=== PATIENT | male | born 1975 | race Caucasian/White ===

== ENCOUNTER 2022-05-15 17:55 | Emergency (ER) | payer SELFPAY ==
[2022-05-15 19:12] VITALS: RESP 20; TEMP 97.6
--- NOTE | 2022-05-15 20:28 | ED ---
General Adult HPI - General Chief complaint: Extremity Problem,Nontraumatic Stated complaint: Left elbow swelling Time Seen by Provider: 05/15/22 20:01 Source: patient, RN notes reviewed Mode of arrival: ambulatory Limitations: no limitations - History of Present Illness Initial comments: Patient is a pleasant 47-year-old male presenting to the emergency department with left forearm swelling. Onset of symptoms was close to week ago. Symptoms worsen last couple of days. Patient does have some discomfort near the elbow region. Discomfort does increase with touch. No pain with movement at the elbow or wrist. No fever. No history of similar symptoms previously. Patient does frequently get scratches secondary to the work he does. - Related Data Previous Rx's Medication Instructions Recorded Cephalexin [Keflex] 500 mg PO QID #40 cap 05/15/22 Allergies Allergy/AdvReac Type Severity Reaction Status Date / Time No Known Allergies Allergy Verified 05/15/22 19:12 Review of Systems ROS Statement: Those systems with pertinent positive or pertinent negative responses have been documented in the HPI. ROS Other: All systems not noted in ROS Statement are negative. Constitutional: Denies: fever Eyes: Denies: eye pain ENT: Denies: ear pain Respiratory: Denies: cough Cardiovascular: Denies: chest pain Endocrine: Denies: fatigue Gastrointestinal: Denies: abdominal pain Genitourinary: Denies: dysuria Musculoskeletal: Denies: back pain Skin: Reports: as per HPI Neurological: Denies: weakness Past Medical History Past Medical History: No Reported History History of Any Multi-Drug Resistant Organisms: None Reported Past Surgical History: No Surgical Hx Reported Past Psychological History: No Psychological Hx Reported Smoking Status: Current every day smoker Past Alcohol Use History: None Reported Past Drug Use History: Marijuana General Exam Limitations: no limitations General appearance: alert, in no apparent distress Head exam: Present: normocephalic Eye exam: Present: normal appearance Respiratory exam: Present: normal lung sounds bilaterally Cardiovascular Exam: Present: regular rate, normal rhythm Extremities exam: Present: full ROM, tenderness (Left ulnar side proximal forearm with mild swelling and tenderness. There is trace erythema.), other (Distally the extremity is neurovascular intact. No swelling or tenderness at the elbow itself.) Neurological exam: Present: alert. Absent: motor sensory deficit Psychiatric exam: Present: normal affect, depressed Skin exam: Present: erythema (Trace left forearm) Course Vital Signs 05/15/22 19:09 Temperature 97.6 F Pulse Rate 89 Respiratory 20 Rate Blood Pressure 138/91 O2 Sat by Pulse 99 Oximetry Medical Decision Making - Medical Decision Making Patient reevaluated and updated. - Lab Data Result diagrams: 05/15/22 18:19 05/15/22 18:19 Lab Results 05/15/22 05/15/22 05/15/22 Range/Units 18:19 18:19 18:19 WBC 8.7 (3.8-10.6) k/uL RBC 5.24 (4.30-5.90) m/uL Hgb 15.5 (13.0-17.5) gm/dL Hct 47.3 (39.0-53.0) % MCV 90.3 (80.0-100.0) fL MCH 29.6 (25.0-35.0) pg MCHC 32.8 (31.0-37.0) g/dL RDW 12.5 (11.5-15.5) % Plt Count 277 (150-450) k/uL MPV 7.2 Neutrophils % 68 % Lymphocytes % 19 % Monocytes % 9 % Eosinophils % 2 % Basophils % 1 % Neutrophils # 6.0 (1.3-7.7) k/uL Lymphocytes # 1.6 (1.0-4.8) k/uL Monocytes # 0.8 (0-1.0) k/uL Eosinophils # 0.1 (0-0.7) k/uL Basophils # 0.1 (0-0.2) k/uL Sodium 139 (137-145) mmol/L Potassium 4.0 (3.5-5.1) mmol/L Chloride 100 (98-107) mmol/L Carbon Dioxide 29 (22-30) mmol/L Anion Gap 10 mmol/L BUN 18 (9-20) mg/dL Creatinine 0.99 (0.66-1.25) mg/dL Est GFR (CKD-EPI)AfAm >90 (>60 ml/min/1.73 sqM) Est GFR (CKD-EPI)NonAf 90 (>60 ml/min/1.73 sqM) Glucose 80 (74-99) mg/dL Plasma Lactic Acid Gonzalo 1.1 (0.7-2.0) mmol/L Calcium 9.4 (8.4-10.2) mg/dL Total Bilirubin 0.9 (0.2-1.3) mg/dL AST 28 (17-59) U/L ALT 14 (4-49) U/L Alkaline Phosphatase 62 (38-126) U/L C-Reactive Protein 1.6 H (<1.0) mg/dL Total Protein 7.2 (6.3-8.2) g/dL Albumin 4.8 (3.5-5.0) g/dL - Radiology Data Radiology results: report reviewed (Ultrasound negative for thrombosis), image reviewed (X-ray shows soft tissue swelling otherwise no acute process) Disposition Clinical Impression: Cellulitis Disposition: HOME SELF-CARE Condition: Stable Instructions (If sedation given, give patient instructions): Cellulitis (ED) Additional Instructions: Prescription sent to pharmacy. Please follow-up with primary care physician in the next couple days for recheck. Return for fever, redness, increased pain, increased swelling, worsening symptoms or any other concerns. Prescriptions: Cephalexin [Keflex] 500 mg PO QID #40 cap Is patient prescribed a controlled substance at d/c from ED?: No Referrals: Artemio Trujillo MD [STAFF PHYSICIAN] - 1-2 days Time of Disposition: 22:15
[2022-05-15 20:34] LABS: Basophils # (A) 0.1 k/uL (0-0.2); Basophils % (A) 1 %; Eosinophils # (A) 0.1 k/uL (0-0.7); Eosinophils % (A) 2 %; HCT 47.3 % (39.0-53.0); HGB 15.5 gm/dL (13.0-17.5); Lymphocytes # (A) 1.6 k/uL (1.0-4.8); Lymphocytes % (A) 19 %; MCH 29.6 pg (25.0-35.0); MCHC 32.8 g/dL (31.0-37.0); MCV 90.3 fL (80.0-100.0); Mean Platelet Volume 7.2; Monocytes # (A) 0.8 k/uL (0-1.0); Monocytes % (A) 9 %; Neutrophils % (A) 68 %; Platelet Count 277 k/uL (150-450); RBC 5.24 m/uL (4.30-5.90); RDW 12.5 % (11.5-15.5); WBC 8.7 k/uL (3.8-10.6)
[2022-05-15 20:49] LABS: ALT 14 U/L (4-49); AST 28 U/L (17-59); African American GFR (CKD) >90 (>60 ml/min/1.73 sqM); Albumin 4.8 g/dL (3.5-5.0); Alkaline Phosphatase 62 U/L (38-126); Anion Gap 10 mmol/L; Blood Urea Nitrogen 18 mg/dL (9-20); C Reactive Protein 1.6 mg/dL (<1.0); Calcium 9.4 mg/dL (8.4-10.2); Carbon Dioxide 29 mmol/L (22-30); Chloride 100 mmol/L (98-107); Glucose 80 mg/dL (74-99); Non-African American GFR(CKD) 90 (>60 ml/min/1.73 sqM); Sodium 139 mmol/L (137-145); Total Bilirubin 0.9 mg/dL (0.2-1.3); Total Protein 7.2 g/dL (6.3-8.2)
--- NOTE | 2022-05-15 21:12 | XR ---
PROCEDURE: XR elbow complete LT - 3V DATE AND TIME: 05/15/2022 7:25 PM CLINICAL INDICATION: PHH; pain and swelling TECHNIQUE: Department protocol COMPARISON: None FINDINGS: There is no fracture or malalignment. Bones and joints appear unremarkable. However, there is prominent soft tissue swelling circumferentially about the left elbow. IMPRESSION: Prominent diffuse soft tissue swelling.
--- NOTE | 2022-05-15 21:58 | US ---
EXAMINATION TYPE: US venous doppler duplex UE LT DATE OF EXAM: 05/15/2022 COMPARISON: NONE CLINICAL HISTORY: swelling. left elbow swelling SIDE PERFORMED: Left Left Arm: Negative for DVT Grayscale, color doppler, spectral doppler imaging performed of the deep veins of the left upper extr emity. There is normal flow, compressibility and vascular waveforms. IMPRESSION: No ultrasound evidence for acute deep or superficial venous thrombosis in the left upper extremity.
[2022-05-15] MEDS ORDERED: CEPHALEXIN 500MG STARTER PACK 4 CAP BTL PO STA (22:14)
[2022-05-15] MEDS ORDERED: DIPH,PERTUS(ACELL)TETVAC-LF 0.5 ML VIAL IM ONE (22:14)
[2022-05-15 22:39] VITALS: BP 136/70; PULSE 72
== END 2022-05-15 22:38 | disposition home or self-care (01) ==
LOC: EC 17:55
DX: Z23 Encounter for immunization (principal); L03.90 Cellulitis, unspecified; F17.200 Nicotine dependence, unspecified, uncomplicated; F12.90 Cannabis use, unspecified, uncomplicated
CPT/HCPCS: 36415; 80053; 83605; 85025; 86140; 87040; 90471; 90715; 99284